=== PATIENT | female | born 2000 | race Caucasian/White ===

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

== ENCOUNTER 2023-04-17 10:17 | Emergency (ER) | payer MEDICAID ==
[~2023-04-17] VITALS: Ht 162.6 cm; Wt 90.9 kg
[2023-04-17 10:21] VITALS: BP 153/91; PULSE 130; TEMP 97.8; O2SAT 98
[2023-04-17 10:41] VITALS: RESP 19
[2023-04-17] MEDS ORDERED: TETanus/Pertussis (Acell)/Diphther VAC/PF (Tdap-Adult) 0.5ml syringe IMVAC ONE (10:50)
[2023-04-17] MEDS ORDERED: LIDOCAINE 1%/EPI 1:100,000 inj. 10 ML multi-dose vial IJ ONE (10:50)
== END 2023-04-17 12:14 | disposition home or self-care (01) ==
LOC: ER 10:18
DX: S71.112A Laceration without foreign body, left thigh, initial encounter (principal); W45.8XXA Other foreign body or object entering through skin, initial encounter; Y93.89 Activity, other specified; Y92.89 Other specified places as the place of occurrence of the external cause; Y99.8 Other external cause status
CPT/HCPCS: 90471; 90715; 99283

== ENCOUNTER 2023-04-21 13:44 | Emergency (ER) | payer MEDICAID, OTHER ==
[~2023-04-21] VITALS: Ht 162.6 cm; Wt 90.5 kg
[2023-04-21 13:45] VITALS: BP 141/84; PULSE 117; TEMP 96.4; O2SAT 98
[2023-04-21 14:00] VITALS: RESP 17
== END 2023-04-21 14:37 | disposition home or self-care (01) ==
LOC: ER 13:45
DX: S71.112D Laceration without foreign body, left thigh, subsequent encounter (principal); F31.9 Bipolar disorder, unspecified; X58.XXXD Exposure to other specified factors, subsequent encounter
CPT/HCPCS: 87070; 87077; 87186; 99283; A6258; A6449